=== PATIENT | female | born 1975 | race Caucasian/White ===

== ENCOUNTER 2017-01-30 14:22 | Emergency (ER) | payer OTHER | END 2017-01-30 16:55 | disposition home or self-care (01) | LOC: ER1 14:22 | DX: G43.909 Migraine, unspecified, not intractable, without status migrainosus (principal); R00.2 Palpitations; I10 Essential (primary) hypertension; F17.200 Nicotine dependence, unspecified, uncomplicated; Z79.899 Other long term (current) drug therapy | CPT/HCPCS: 81001; 84703; 93005; 96365; 96375; 99284; J1200; J1885; J2765; J7030 ==

== ENCOUNTER 2017-03-30 13:05 | Emergency (ER) | payer OTHER | END 2017-03-30 16:45 | disposition home or self-care (01) | LOC: ER1 13:05 | DX: G43.909 Migraine, unspecified, not intractable, without status migrainosus (principal); F41.9 Anxiety disorder, unspecified; F17.210 Nicotine dependence, cigarettes, uncomplicated; Z79.899 Other long term (current) drug therapy | CPT/HCPCS: 96374; 96375; 99283; J1200; J1885; J2765; J7030 ==